=== PATIENT | female | born 1980 | race African-American/Black ===

== ENCOUNTER 2018-02-13 11:43 | Emergency (ER) | payer BC ==
[2018-02-13 11:52] VITALS: BP 130/91; PULSE 102; TEMP 98.6; BMI 41.9
--- NOTE | 2018-02-13 12:14 | PDOC ---
History of Present Illness - General Chief Complaint: Back Pain Stated Complaint: LOW BACK PAIN Time Seen by Provider: 02/13/18 12:07 - History of Present Illness Initial Comments: 02/13/18 12:09 37 yo F with no significant pmh who p/w lower back pain. Patient reports acute onset of sharp lumbar back pain beginning (02-10-18). Patient pain worse with movement (non specific) and position changes. Denies urinary/fecal incontinence, urinary retention, perianal parasthesia, neck pain, DAWSON. Pain not improved with naproxen. Denies F/C, N/V, CP, SOB, abdominal pain, diarrhea, constipation, urinary complaints, weakness, lightheadedness, sensory changes. PMHx: as noted above. Denies h/o back surgery or trauma. ROS: as noted above. SHx: Denies tobacco, Etoh, or IVDA. Allergies: NKDA Past History - Past Medical History Allergies/Adverse Reactions: Allergies Allergy/AdvReac Type Severity Reaction Status Date / Time No Known Allergies Allergy Verified 02/13/18 11:51 COPD: No - Suicide/Smoking/Psychosocial Hx Smoking History: Current every day smoker Number of Cigarettes Smoked Daily: 4 Information on smoking cessation initiated: No Review of Systems - Review of Systems Comments:: 02/13/18 12:09 GENERAL/CONSTITUTIONAL: No fever or chills. No weakness. HEAD, EYES, EARS, NOSE AND THROAT: No change in vision. No ear pain or discharge. No sore throat. CARDIOVASCULAR: No chest pain or shortness of breath RESPIRATORY: No cough, wheezing, or hemoptysis. GASTROINTESTINAL: No nausea, vomiting, diarrhea or constipation. GENITOURINARY: No dysuria, frequency, or change in urination. MUSCULOSKELETAL: + Low back pain. No joint or muscle swelling or pain. SKIN: No rash NEUROLOGIC: No headache, vertigo, loss of consciousness, or change in strength/ sensation. ENDOCRINE: No increased thirst. No abnormal weight change HEMATOLOGIC/LYMPHATIC: No anemia, easy bleeding, or history of blood clots. ALLERGIC/IMMUNOLOGIC: No hives or skin allergy. *Physical Exam - Vital Signs Last Vital Signs Temp Pulse Resp BP Pulse Ox 98.6 F 102 H 20 130/91 100 02/13/18 11:49 02/13/18 11:49 02/13/18 11:49 02/13/18 11:49 02/13/18 11:49 - Physical Exam Comments: 02/13/18 12:09 GENERAL: Awake, alert, and fully oriented, in no acute distress HEAD: No signs of trauma, normocephalic, atraumatic EYES: PERRLA, EOMI, sclera anicteric, conjunctiva clear ENT: Hearing grossly normal, nares patent, oropharynx clear without exudates. Moist mucosa NECK: Normal ROM, supple, no lymphadenopathy, JVD, or masses LUNGS: No distress, speaks full sentences, clear to auscultation bilaterally HEART: Regular rate and rhythm, normal S1 and S2, no murmurs, rubs or gallops, peripheral pulses normal and equal bilaterally. ABDOMEN: Soft, nontender, normoactive bowel sounds. No guarding, no rebound. No masses EXTREMITIES : Normal inspection, Normal range of motion, no edema. No clubbing or cyanosis. NEUROLOGICAL: Cranial nerves II through XII grossly intact. Normal speech, normal gait, no focal sensorimotor deficits. Neg straight leg raise test. Back: Neg deformity, step-off, bony deformity, midline ttp, or skin changes. SKIN: Warm, Dry, normal turgor, no rashes or lesions noted Medical Decision Making - Medical Decision Making 02/13/18 12:34 37 yo F with no significant pmh who p/w lower back pain, following straining/ heavy lifting. VSS, AF, NAD. Asbent neuro deficits on physical exam. No evidence of disc herniation, cauda equina, spinal stenosis. Low suspicion of more serious back pain pathology, such as pyelonpehritis, AAA, Ao dissection, epidural abscess. Pain control and reasses. ED Course: Ibuprofen 800 mg PO 02/13/18 15:16 UA: Neg HCG: Neg Patient stable and ready for d/c with return precautions. Advised to f/u with PMD. Ibruprofen as needed for pain. *DC/Admit/Observation/Transfer Diagnosis at time of Disposition: Low back pain - Discharge Dispostion Disposition: HOME Condition at time of disposition: Stable Decision to Admit order: No - Referrals Referrals: Bhaskar Armstrong MD [Staff Physician] - - Patient Instructions Printed Discharge Instructions: DI for Low Back Pain Additional Instructions: Please return to the emergency department with any new or worsening symptoms or concerns. Please follow up with your primary care physician within 72 hours. - Post Discharge Activity - Attestations Physician Attestion: 02/13/18 12:14 I attest to the information provided in this note.
[2018-02-13] MEDS ORDERED: IBUPROFEN 400 MG TABLET (FP) PO ONE ×2 (12:55→13:50)
--- NOTE | 2018-02-13 13:42 | PDOC ---
Attending Attestation - HPI HPI: 02/13/18 14:02 The patient is a 37 year old female with a significant PMH of right eye cataracts who presents to the emergency department with lower back pain beginning approximately 4 days ago. The patient reports helping her out of their car on , after which she developed a sharp, shooting pain in her lower back localized in the lumbar region, which is aggravated by positional changes. The patient denies dysuria, urinary incontinence, or changes in frequency. She denies urinary retention. She denies abdominal pain or flank pain. Allergies: NKA <Marty Napier - Last Filed: 02/13/18 14:02> - Resident Resident Name: Miles Rocha - ED Attending Attestation I have performed the following: I have examined & evaluated the patient, The case was reviewed & discussed with the resident, I agree w/resident's findings & plan, Exceptions are as noted - Physicial Exam PE: 02/13/18 16:23 awake alert NAD lungs clear bilaterally heart rrr no mrg. abd soft obese nt. ext wwp. nuero 5/5 all four ext. no midline spinal tenderness. paraspinal m spasm. - Medical Decision Making 02/13/18 16:23 differential uti, pyelo, likley msk strain. nuerologically intact both lower ext. plan nsaids. ua ucg. dc with nsaids. <Claudia Baumann - Last Filed: 02/13/18 16:24>
[2018-02-13 13:43] LABS: URINE APPEARANCE CLEAR; URINE BILIRUBIN NEGATIVE (<2.0 mg/dL); URINE COLOR YELLOW; URINE GLUCOSE (UA) NEGATIVE (NEGATIVE); URINE KETONE NEGATIVE (NEGATIVE); URINE LEUK ESTERASE NEGATIVE (NEGATIVE); URINE NITRITE NEGATIVE (NEGATIVE); URINE PROTEIN NEGATIVE (NEGATIVE); URINE UROBILINOGEN NEGATIVE mg/dL (0.2-1.0)
[2018-02-13 14:17] LABS: EPI CELLS RARE /HPF (FEW); URINE MUCUS RARE
[2018-02-13] MEDS ORDERED: METHOCARBAMOL 750 MG TABLET PO ONE (16:52)
[2018-02-13] MEDS ORDERED: METHOCARBAMOL 500 MG TABLET ONE (16:53)
[2018-02-13] MEDS: METHOCARBAMOL 750 MG TAB PO ONE ×2 (17:01→17:03)
== END 2018-02-13 17:06 | disposition home or self-care (01) ==
LOC: JER 11:43 → JERFT 11:43 → JER 17:06
DX: M54.5 Low back pain (principal); F17.210 Nicotine dependence, cigarettes, uncomplicated
CPT/HCPCS: 81003; 81015; 84703; 99282-25